=== PATIENT | female | born 1945 | race Hispanic/Latino ===

== ENCOUNTER 2018-03-26 12:56 | Outpatient (CLI) | payer MEDICARE | END 2018-03-26 12:57 | disposition home or self-care (01) | LOC: RAD 12:56 | DX: Z12.31 Encounter for screening mammogram for malignant neoplasm of breast (principal); Z13.820 Encounter for screening for osteoporosis ==

== ENCOUNTER 2018-03-31 23:01 | Emergency (ER) | payer MEDICARE ==
[2018-03-31 23:07] VITALS: BMI 26.5
--- NOTE | 2018-03-31 23:20 | ED PDOC ---
Arrival/HPI - General Chief Complaint: Medical Clearance Time Seen by Provider: 03/31/18 23:14 - History of Present Illness Narrative History of Present Illness (Text): 72 y/o F c PMHx dementia BIB police when family called that patient had left home wandering and was missing. Patient found, brought to ED, denies any pain or complaint. Family arrived, state this is not out of ordinary and feel comfortable to take patient home. Past Medical History - Tetanus Immunization Tetanus Immunization: Unknown - Cardiac Hx Pacemaker: No - Pulmonary Hx Tuberculosis: No - Neurological Hx Paralysis: No - Endocrine/Metabolic Hx Diabetes Mellitus Type 2: Yes - Hematological/Oncological Hx Blood Transfusions: No Hx Blood Transfusion Reaction: No - Musculoskeletal/Rheumatological Hx Musculoskeletal Disorders: Yes - Gastrointestinal Hx Gastrointestinal Disorders: Yes (reflux) - Genitourinary/Gynecological Hx Reproductive Disorders: No - Psychiatric Hx Emotional Abuse: No Hx Physical Abuse: No Hx Substance Use: No - Past Surgical History Past Surgical History: No Previous - Anesthesia Hx Anesthesia Reactions: No Hx Malignant Hyperthermia: No - Suicidal Assessment Feels Threatened In Home Enviroment: No Family/Social History Family/Social History: No Known Family HX Smoking Status: Never Smoked Hx Alcohol Use: No Hx Substance Use: No Hx Substance Use Treatment: No Allergies/Home Meds Allergies/Adverse Reactions: Allergies Penicillins Allergy (Verified 03/31/18 23:07) ANAPHYLAXIS Home Medications: Home Meds Medication Instructions Recorded Confirmed Omeprazole 20 mg PO DAILY 03/16/16 03/23/16 Review of Systems - Physician Review All systems were reviewed & negative as marked: Yes - Review of Systems Constitutional: absent: Fevers Respiratory: absent: SOB Physical Exam - Physical Exam Narrative Physical Exam (Text): Gen: NAD head: NC/AT Eyes: No icterus ENT: MMM Extremities: No cyanosis. No deformity Neuro: Alert Disposition/Present on Arrival - Present on Arrival Any Indicators Present on Arrival: No History of DVT/PE: No History of Uncontrolled Diabetes: No Urinary Catheter: No History of Decub. Ulcer: No History Surgical Site Infection Following: None - Disposition Have Diagnosis and Disposition been Completed?: Yes Diagnosis: Dementia Disposition: HOME/ ROUTINE Disposition Time: 23:18 Patient Plan: Discharge Condition: STABLE Discharge Instructions (ExitCare): Dementia (DC)
[2018-03-31 23:44] VITALS: BP 165/72; PULSE 90; RESP 18; TEMP 97.7; O2SAT 98
== END 2018-03-31 23:19 | disposition home or self-care (01) ==
LOC: ED 23:01
DX: F03.90 Unspecified dementia, unspecified severity, without behavioral disturbance, psychotic disturbance, mood disturbance, and anxiety (principal)